=== PATIENT | male | born 1955 | race African-American/Black ===

== ENCOUNTER 2023-07-19 06:06 | Day surgery (SDC) | payer OTHER ==
[~2023-07-19] VITALS: Ht 185.4 cm; Wt 91.3 kg
[~2023-07-19 06:06] MED LIST: BIMATOPROST2.5 ML OP; LISINOPRIL-HCT1 EAC1 PO; ZOCOR20 MG PO
[2023-07-19 06:30] VITALS: BP 163/91
[2023-07-19] MEDS ORDERED: AMLODIPINE BESYL5 MG PO (06:36)
[2023-07-19] MEDS ORDERED: ATORVASTATIN CA20 MG PO (06:48)
--- NOTE | 2023-07-19 08:02 | NUR ---
07/19/23 0802 Elsa Jonas PT TO PACU SLEEPING.
[2023-07-19 09:15] VITALS: BP 133/77
--- NOTE | 2023-07-19 10:11 | OR ---
[facility] [address], [place] [address] Signed DATE OF OPERATION: 07/19/2023 SURGEON: Ari Sow MD PREOPERATIVE DIAGNOSES: 1. Father with colon cancer in his late 80s. 2. Personal history of colonic polyps at age 56 and age 61 in 2012 and 2017. POSTOPERATIVE DIAGNOSES: 1. Minimal internal hemorrhoids. 2. 4 mm polyp at 22 cm in sigmoid colon. 3. 3 mm polyp at base of cecum. 4. 4 mm polyp at 15 cm in rectum. PROCEDURE: Colonoscopy with hot biopsy. ESTIMATED BLOOD LOSS: None. INDICATIONS: Jeffrey is a 68-year-old gentleman, asked to see me for followup colonoscopy. We know his father had developed colon cancer in his late 80s. Jeffrey has had two previous colonoscopies. He had adenomatous polyps removed in 2012 at the age of 56 as well as 2017 at the age of 61. He is returning now for followup colonoscopy. In the meantime, he underwent his radical prostatectomy. He said he has no lower GI complaints. In the office, I had given him a pamphlet on colonoscopy. We had reviewed that together. He recalls the nature of the test. There is risk including, but not limited to gas bloating, crampy abdominal pain, bleeding, perforation requiring surgery, and missed diagnosis. We also reviewed the need for IV conscious sedation. He had expressed understanding and wished to proceed. PROCEDURE NOTE: Jeffrey was taken into our endoscopy suite and placed in the left lateral decubitus position. He was given a total of 4 mg of Versed and 125 mcg of fentanyl to cover the case. A digital rectal exam was performed. He has good sphincter tone. There were no external hemorrhoids. There were no masses. His prostate is absent. The adult colonoscope was introduced and advanced under direct visualization of the camera. He needed just a little extra sedation and a little abdominal compression in order to get the scope directly into the cecum itself. His prep was quite good. The scope was Electronically Signed By: ARI SOW MD 07/19/23 1011 PATIENT NAME: JEFFREY DAY OPERATIVE REPORT DATE OF : 57 REPORT #: [id number] PHYSICIAN: ARI SOW MD PCP: GRACIELA SUTTON MD REPORT IS CONFIDENTIAL AND NOT TO BE RELEASED WITHOUT AUTHORIZATION [facility] [address] [place] [id number] Signed slowly withdrawn. We could easily see the appendiceal orifice and the ileocecal valve. We took pictures throughout for photodocumentation. The above-mentioned polyps were easily removed with the help of hot biopsy forceps. There was no diverticulosis. Once in the rectum, the scope had been retroflexed, he has very minimal internal hemorrhoid tissue. After this, the gas was suctioned out and the colonoscope removed. Jeffrey tolerated the procedure quite well. RECOMMENDATIONS: I will see Jeffrey back in my office in 7 to 14 days to review his results. I suspect he will stay on the five year rotation. Ari Sow MD ALB/MODL /[id number] cc: MD Graciela Small MD Copies: ARI SOW MD ~ Electronically Signed By: ARI SOW MD 07/19/23 1011 PATIENT NAME: JEFFREY DAY Romie OPERATIVE REPORT DATE OF : 57 REPORT #: [id number] PHYSICIAN: ARI SOW MD PCP: GRACIELA SUTTON MD REPORT IS CONFIDENTIAL AND NOT TO BE RELEASED WITHOUT AUTHORIZATION
--- NOTE | 2023-07-21 16:23 | PATH ---
[facility] [address] [facility] [place] [address] Signed SPECIMEN(S): A SIGMOID POLYP AT 22 CM SPECIMEN(S): B CECUM COLON POLYP SPECIMEN(S): C RECTAL POLYP AT 15 CM SPECIMEN SOURCE: A. SIGMOID POLYP AT 22 CM B. CECUM COLON POLYP C. RECTAL POLYP AT 15 CM CLINICAL HISTORY: History of colon polyps FINAL PATHOLOGIC DIAGNOSIS: A. Sigmoid polyp at 22 cm: - Hyperplastic polyp (1 fragment). B. Cecum colon polyp: - Polypoid colonic mucosa with incidental mucosa lymphoid aggregates with reactive histologic features. - Negative for dysplasia. C. Rectal polyp at 15 cm: - Tubular adenoma (1 fragment). JVR:dagoberto MICROSCOPIC EXAMINATION: Histologic sections of all submitted blocks are examined by light microscopy. These findings, together with the gross examination, support the pathologic diagnosis. GROSS DESCRIPTION: A. The specimen, labeled and designated "Miranda, sigmoid colon polyp at 22 cm," is received in formalin and consists of one chow soft tissue fragment, 0.2 cm. Entirely submitted in (A1). B. The specimen, labeled and designated "Miranda, cecum polyp," is received in formalin and consists of one chow soft tissue fragment, 0.2 cm. Entirely submitted in (B1). C. The specimen, labeled and designated "Miranda, rectal polyp at 15 cm," is received in formalin and consists of one chow soft tissue fragment, 0.2 cm. Entirely submitted in (C1). JS (under the direct supervision of a pathologist) The Gross Description was prepared using a voice recognition system. The report was reviewed for accuracy; however, sound-alike word errors, addition and/or PATIENT NAME: JEFFREY DAY PATHOLOGY DATE OF : 57 REPORT #: [id number] PHYSICIAN: JENY IRIZARRY PCP: JOANNA SUTTON MD REPORT IS CONFIDENTIAL AND NOT TO BE RELEASED WITHOUT AUTHORIZATION [facility] [address] [facility] [place] [address] Signed deletions may occur. If there is any question about this report, please contact Client Services. PERFORMING LABORATORY: Technical component was performed by [facility], [address] [place] [address] (CLIA# [id number]). Professional interpretation was performed by [facility] - [facility], [address] [place] [id number] (CLIA#: [id number]). Diagnostician: Pillo Will MD Pathologist Electronically Signed 07/21/2023 Copies: ~ PATIENT NAME: JEFFREY DAY PATHOLOGY DATE OF : 57 REPORT #: [id number] PHYSICIAN: JENY IRIZARRY PCP: JOANNA SUTTON MD REPORT IS CONFIDENTIAL AND NOT TO BE RELEASED WITHOUT AUTHORIZATION
== END 2023-07-19 09:10 | disposition home or self-care (01) ==
LOC: OPS 06:06 → DS 06:06 → OPS 07:30
PROVIDERS: ATTEND Colon & Rectal Surgery
PROC: 0DBN8ZX Excision of Sigmoid Colon, Via Natural or Artificial Opening Endoscopic, Diagnostic (ICD-10-PCS; 2023-07-19)
PROC: 0DBP8ZX Excision of Rectum, Via Natural or Artificial Opening Endoscopic, Diagnostic (ICD-10-PCS; 2023-07-19)
PROC: 0DBH8ZX Excision of Cecum, Via Natural or Artificial Opening Endoscopic, Diagnostic (ICD-10-PCS; principal; 2023-07-19 07:30)
DX: D12.8 Benign neoplasm of rectum (principal); K63.5 Polyp of colon; I10 Essential (primary) hypertension; E78.5 Hyperlipidemia, unspecified; F17.290 Nicotine dependence, other tobacco product, uncomplicated; E11.9 Type 2 diabetes mellitus without complications; Z80.0 Family history of malignant neoplasm of digestive organs
CPT/HCPCS: 99153; G0500; J2250; J3010; J7121